=== PATIENT | female | born 1965 | race Caucasian/White ===

== ENCOUNTER 2017-09-09 09:40 | Day surgery (SDC) | payer OTHER ==
[~2017-09-09] VITALS: Ht 157.5 cm; Wt 95.3 kg
[~2017-09-09 09:40] MED LIST: ADULT ONE DAIL0.4 MG PO; BIOTIN 5000MCG PO; CALTRATE PLUS1 EACH PO; FISH OIL CONC1 EACH PO; FUROSEMIDE20 MG PO; GABAPENTIN300 MG PO; HYDROCODON-ACE1 EAC7 PO; NORVASC10 MG PO; TIZANIDINE HCL2 MG PO; TURMERIC 500 M1 EACH PO; VITAMIN B-12500 MC3 PO; VITAMIN C1000 MG PO; VITAMIN D2000 UNIT PO; ZESTRIL,PRINIVI10 MG PO
== END 2017-09-09 11:45 | disposition home or self-care (01) ==
LOC: PAIN 09:40 → SDC 10:15 → PAIN 10:15
DX: M50.123 Cervical disc disorder at C6-C7 level with radiculopathy (principal); M47.812 Spondylosis without myelopathy or radiculopathy, cervical region; M48.02 Spinal stenosis, cervical region; M79.1 Myalgia; Z87.891 Personal history of nicotine dependence; Z79.891 Long term (current) use of opiate analgesic
CPT/HCPCS: J1100; J2250

== ENCOUNTER 2017-10-08 09:56 | Day surgery (SDC) | payer OTHER ==
[~2017-10-08] VITALS: Ht 157.5 cm; Wt 95.3 kg
== END 2017-10-08 11:50 | disposition home or self-care (01) ==
LOC: PAIN 09:56 → SDC 10:15 → PAIN 10:15
PROC: 3E0S33Z Introduction of Anti-inflammatory into Epidural Space, Percutaneous Approach (ICD-10-PCS; principal; 2017-10-08)
PROC: BR141ZZ Fluoroscopy of Cervical Facet Joint(s) using Low Osmolar Contrast (ICD-10-PCS; principal; 2017-10-08)
DX: M47.812 Spondylosis without myelopathy or radiculopathy, cervical region (principal); M48.02 Spinal stenosis, cervical region; M54.12 Radiculopathy, cervical region; Z87.891 Personal history of nicotine dependence; Z98.84 Bariatric surgery status
CPT/HCPCS: J1100; J2250